=== PATIENT | female | born 1950 | race Two or more races ===

== ENCOUNTER 2021-03-14 20:20 | Inpatient (IN) | payer MEDICARE, OTHER ==
[~2021-03-14] VITALS: Ht 157.5 cm; Wt 80.1 kg
[2021-03-14 21:12] LABS: BASO # 0.2 x10^3/uL (0.0-0.2); BASO % 1 % (0-3); EOS # 0.2 x10^3/uL (0.0-0.7); EOS % 2 % (0-3); HEMATOCRIT 47.1 % (36.0-47.0); HEMOGLOBIN 16.2 g/dL (12.0-15.5); LYMPH # 2.7 x10^3/uL (1.0-4.8); LYMPH % 22 % (24-48); MEAN CORPUSCULAR HEMOGLOBIN 31 pg (25-35); MEAN CORPUSCULAR HGB CONC 34 g/dL (31-37); MEAN CORPUSCULAR VOLUME 89 fL (79-100); MONO % 8 % (0-9); NEUT % 66 % (31-73); PLATELET COUNT 277 x10^3/uL (140-400); RED BLOOD COUNT 5.28 x10^6/uL (3.50-5.40); RED CELL DISTRIBUTION WIDTH 13.1 % (11.5-14.5); WHITE BLOOD COUNT 12.2 x10^3/uL (4.0-11.0)
[2021-03-14] MEDS ORDERED: ASPIRIN 325 MG TABLET PO ONE (21:15)
[2021-03-14] MEDS ORDERED: NITROGLYCERIN SUBLINGUAL 0.4 MG BOTTLE OF 25. SL PRN (21:15)
--- NOTE | 2021-03-14 21:16 | PHYS DOC ---
Past Medical History Past Medical History: Cancer, Other Additional Past Medical Histor: LYMPHOMA, BOWEL OBSTRUCTION Past Surgical History: Appendectomy, Cholecystectomy, Other Additional Past Surgical Histo: HERNIA REPAIR, BOWEL RESECTION Smoking Status: Current Every Day Smoker Alcohol Use: None General Adult EDM: Chief Complaint: CHEST PAIN HPI: HPI: Patient is a 70 year old female who presents with 2000 tonight she began having left-sided chest pressure with sharp shooting pain in her bilateral arms. She took an 81 mg aspirin. She stated she did have some nausea, vomiting and sweating and dizziness. She states the pain will lessen in intensity and then go back to very painful. At this time she rates it at a 2 out of 10. Patient has a history of obstruction, lymphoma, appendectomy, cholecystectomy, bowel resection, smoking. Review of Systems: Review of Systems: Constitutional: Denies fever or chills. [] Eyes: Denies change in visual acuity. [] HENT: Denies nasal congestion or sore throat. [] Respiratory: Denies cough or +shortness of breath. [] Cardiovascular: + chest pain or denies edema. [] GI: Denies abdominal pain, +nausea, denies vomiting, bloody stools or diarrhea. [] : Denies dysuria. [] Musculoskeletal: + Upper back pain or +Bilateral arms joint pain. [] Integument: Denies rash. [] Neurologic: Denies headache, focal weakness or sensory changes. + Intermittent dizziness [] Endocrine: Denies polyuria or polydipsia. [] Lymphatic: Denies swollen glands. [] Psychiatric: Denies depression or anxiety. [] Heart Score: C/O Chest Pain: Yes Risk Factors: Risk Factors: DM, Current or recent (<one month) smoker, HTN, HLP, family history of CAD, obesity. Risk Scores: Score 0 - 3: 2.5% MACE over next 6 weeks - Discharge Home Score 4 - 6: 20.3% MACE over next 6 weeks - Admit for Clinical Observation Score 7 - 10: 72.7% MACE over next 6 weeks - Early Invasive Strategies Current Medications: Current Medications Medications (Trade) Dose Ordered Sig/Omer Start Time Stop Time Status Last Admin Dose Admin Aspirin (Charlene Aspirin) 325 mg 1X ONCE 03/14/21 21:15 03/14/21 21:16 Nitroglycerin (Nitrostat) 0.4 mg PRN Q5MIN PRN 03/14/21 21:15 UNV Allergies: Allergies: Allergies Coded Allergies Type Severity Reaction Last Updated Verified codeine Allergy Intermediate 05/21/20 Yes Physical Exam: PE: Constitutional: Well developed, well nourished, no acute distress, non-toxic appearance. [] HENT: Normocephalic, atraumatic, bilateral external ears normal, oropharynx moist, no oral exudates, nose normal. [] Eyes: PERRLA, EOMI, conjunctiva normal, no discharge. [] Neck: Normal range of motion, no tenderness, supple, no stridor. [] Cardiovascular:Heart rate regular rhythm, no murmur [] Lungs & Thorax: Bilateral upper breath sounds clear and lower diminished to auscultation [] Abdomen: Bowel sounds normal, soft, no tenderness, no masses, no pulsatile masses. [] Skin: Warm, dry, no erythema, no rash. [] Back: No tenderness, no CVA tenderness. [] Extremities: No tenderness, no cyanosis, no clubbing, ROM intact, no edema. [] Neurologic: Alert and oriented X 3, normal motor function, normal sensory function, no focal deficits noted. [] Psychologic: Affect normal, judgement normal, mood normal. [] Current Patient Data: Vital Signs: Vital Signs Date Time Temp Pulse Resp B/P (MAP) Pulse Ox O2 Delivery O2 Flow Rate FiO2 03/14/21 20:50 97.6 78 17 157/79 (105) 100 Room Air 97.6 EKG: EK and read by Dr. Wilcox as a sinus rhythm but no STEMI [address] Wilcox as a sinus rhythm and no STEMI with a PAC. Radiology/Procedures: Radiology/Procedures: [] Impression: [facility] [address] [place], [place] [id number] IMAGING REPORT Signed PATIENT: VANESSA QUINN ACCOUNT: [id number] : 1950 LOCATION: ER AGE: 70 SEX: F EXAM STATUS: REG ER ORD. PHYSICIAN: KWADWO LUCERO APRN REASON: dizzy, htn PROCEDURE: CT HEAD WO CONTRAST EXAMINATION: CT HEAD/BRAIN WO CLINICAL HISTORY: Dizziness, hypertension TECHNIQUE: Serial axial images without IV contrast were obtained from the vertex to the foramen magnum. CT Dose Reduction Employed: One or more of the following individualized dose reduction techniques were utilized for this examination: 1. Automated exposure control 2. Adjustment of the mA and/or kV according to patient size 3. Use of iterative reconstruction technique. COMPARISON: None FINDINGS: Acute Change: No evidence of an acute infarct or other acute parenchymal pro cess. Hemorrhage: No evidence of acute intracranial hemorrhage. Mass Lesion/Mass Effect: No evidence of intracranial mass or extraaxial fluid collection. No significant mass effect. Chronic Change: Asymmetric mild white matter hypoattenuation in the right cerebral hemisphere, nonspecific and may be artifactual, but ischemic infarct is not excluded. Rodríguez-white matter differentiation maintained. Atherosclerotic calcification of the intracranial portion of the bilateral internal carotid arteries. Parenchyma: Mild generalized volume loss. Ventricles: Ventricles within normal limits for age. Paranasal Sinuses and Skull Base: Right frontal osteoma. Visualized skull base and soft tissues unremarkable. IMPRESSION: No definitive evidence of acute intracranial abnormality. Nonspecific asymmetric white matter hypoattenuation in the right cerebral hemisphere, possibly artifactual but an ischemic infarct is not entirely excluded. Correlate clinically and consider MRI for further evaluation as indicated. Electronically signed by: Kai Caldwell DO (03/14/2021 10:50 PM) [facility] DICTATED and SIGNED BY: KAI CALDWELL DO DATE: 03/14/21 [id number] [facility] [address] [place], [place] [id number] IMAGING REPORT Signed PATIENT: VANESSA QUINN CACCOUNT: [id number] : 1950 LOCATION: ER AGE: 70 SEX: F EXAM STATUS: REG ER ORD. PHYSICIAN: KWADWO LUCERO APRN REASON: chest pain, soa PROCEDURE: PORTABLE CHEST 1V EXAMINATION: XR CHEST 1V CLINICAL HISTORY: Chest pain, shortness of breath EXAM DATE/TIME: 03/14/2021 9:13 PM COMPARISON: None FINDINGS: Lines, Tubes, and Devices: None. Cardiomediastinal Silhouette: Normal heart size. Lungs and Pleura: No evidence of focal airspace consolidation or pleural effusion. Pulmonary vasculature unremarkable. Bones and Soft Tissues: Degenerative changes in the thoracic spine. Right axillary surgical clips. IMPRESSION: No evidence of acute cardiopulmonary abnormality. Electronically signed by: Kai Caldwell DO (03/14/2021 10:35 PM) [facility] DICTATED and SIGNED BY: KAI CALDWELL DO DATE: 03/14/21 [id number] 0 [facility] [address] [place] [address] IMAGING REPORT Signed PATIENT: VANESSA QUINN CACCOUNT: [id number] : 1950 LOCATION: ER AGE: 70 SEX: F EXAM STATUS: REG ER ORD. PHYSICIAN: KWADWO LUCERO APRN REASON: PAIN IN MID BACK WITH CHEST PAIN, NSTEMI, OMNI 350 100 ML IV PROCEDURE: CT ANGIOGRAPHY CHEST EXAMINATION: CTA CHEST CLINICAL HISTORY: PAIN IN MID BACK WITH CHEST PAIN, NSTEMI Technique: Spiral CT acquisition of the chest from the thoracic inlet to the upper abdomen following IV contrast with coronal and sagittal reformatted images also provided for review. 3D maximum intensity projection images also performed. CT Dose Reduction Employed: One or more of the following individualized dose reduction techniques were utilized for this examination: 1. Automated exposure control 2. Adjustment of the mA and/or kV according to patient size 3. Use of iterative reconstruction technique. COMPARISON: Chest radiograph same day FINDINGS: Pulmonary Vasculature: No evidence of main, lobar, or segmental pulmonary arterial thrombus. Lung Parenchyma, Pleura, and Airways: No focal consolidation. Minimal subsegmental atelectasis, predominantly in the dependent lungs. No pleural effusion. Central airways patent. Lower Neck, Lymph Nodes, and Mediastinum: Visualized thyroid gland within normal limits. No mediastinal, hilar, or axillary lymphadenopathy. Calcified left hilar lymph nodes, compatible with old granulomatous disease. Heart, Pericardium, and Thoracic Vessels: Cardiac chambers normal in size. No pericardial effusion. Thoracic aorta within normal limits. No coronary artery atherosclerotic calcifications are noted, although the study is not optimized for coronary assessment. Bones and Soft Tissues: Degenerative changes in the thoracic spine. Upper Abdomen: Biliary ductal prominence status post cholecystectomy. IMPRESSION: No evidence of main, lobar, or segmental pulmonary embolism. Electronically signed by: Kai Caldwell DO (03/14/2021 11:46 PM) [facility] DICTATED and SIGNED BY: KAI CALDWELL DO DATE: 03/14/21 [id number] 0 Course & Med Decision Making: Course & Med Decision Making Pertinent Labs and Imaging studies reviewed. (See chart for details) See HPI. Alert and oriented x4. Ambulatory steady gait. Moving all extremities equally with equal strengths. No visual loss. PERRLA. Sensation intact. Neurologically intact. Skin pink warm and dry. No extremity edema. Lungs are clear in upper lobes and diminished in lower lobes. PERRLA. No nystagmus. After 1 nitro her pain went down to a 1 out of 10. I spoke to Dr. Lozoya who states to start the patient on a heparin drip. Her troponin is 380. I did order a CT of her head because she was hypertensive and having dizziness. Also ordered a CT angio of the chest to rule out dissection, due to her having upper back pain that sharp and shooting that also radiates into her chest at times. [] Dragon Disclaimer: Dragon Disclaimer: This electronic medical record was generated, in whole or in part, using a voice recognition dictation system. NIHSS Stroke Scale NIH Stroke Scale: NIH Stroke Scale Response (Comments) Value Level of Consciousness: 0 Alert/Responsive 0 LOC Questions: 0 Answers both correctly 0 LOC Commands: 0 Performs both tasks 0 Best Gaze: 0 Normal 0 Visual: 0 No visual loss 0 Facial Palsy: 0 Normal, symmetrical 0 Motor - Left Arm 0 No drift 0 Motor - Right Arm 0 No drift 0 Motor - Left Leg 0 No drift 0 Motor: Right Leg 0 No drift 0 Limb Ataxia: 0 Absent 0 Sensory: 0 No loss 0 Best Language: 0 Normal 0 Dysathria: 0 Normal 0 Extinction and Inattention: 0 Normal 0 Total 0 Departure Departure Impression: Primary Impression: NSTEMI (non-ST elevated myocardial infarction) Disposition: ADMITTED INPATIENT Admitting Physician: MIS Condition: STABLE Referrals: IVAN BECERRA MD (PCP) Scripts No Active Prescriptions or Reported Meds KWADWO LUCERO APRN Mar 14, 2021 21:16
[2021-03-14 21:19] LABS: CALCIUM 8.8 mg/dL (8.5-10.1); CREATININE 0.6 mg/dL (0.6-1.0); GFR 99.1; POTASSIUM 3.7 mmol/L (3.5-5.1)
[2021-03-14 21:25] LABS: ALBUMIN 3.6 g/dL (3.4-5.0); ALBUMIN/GLOBULIN RATIO 1.2 (1.0-1.7); MAGNESIUM 2.2 mg/dL (1.8-2.4); TOTAL BILIRUBIN 0.3 mg/dL (0.2-1.0); TOTAL PROTEIN 6.5 g/dL (6.4-8.2)
[2021-03-14] MEDS ORDERED: MORPHINE SULFATE 2 MG/ML INJ. IVP PRN (21:45)
[2021-03-14] MEDS ORDERED: HEPARIN 25,000UTS/250ML PREMIX 250 ML IV PRN ×2 (21:45→22:21)
[2021-03-14] MEDS ORDERED: ONDANSETRON PF 4 MG/2 ML VIAL. IVP PRN (21:45)
[2021-03-14] MEDS ORDERED: HEPARIN for IV BOLUS 10,000 UNIT/10 ML VIAL. IV ONE (21:45)
[2021-03-14] MEDS ORDERED: HEPARIN for IV BOLUS 10,000 UNIT/10 ML VIAL. IV PRN (21:45)
[2021-03-14] MEDS ORDERED: IOHEXOL 350 MG/ML 100 ML VIAL. IV ONE (22:00)
[2021-03-14] MEDS ORDERED: CONTRAST GIVEN. MC PRN (22:00)
[2021-03-14 22:32] LABS: BILIRUBIN,URINE NEGATIVE (NEG); CLARITY,URINE CLEAR; COLOR,URINE YELLOW; NITRITE,URINE NEGATIVE (NEG); PROTEIN,URINE NEGATIVE (NEG-TRACE); UROBILINOGEN,URINE 0.2 mg/dL (0.2 mg/dL)
[2021-03-14 22:38] LABS: BACTERIA,URINE 0 /HPF (0-FEW); BARBITURATES NEG (NEG); BENZODIAZEPINES NEG (NEG); CANNABINOIDS NEG (NEG); COCAINE NEG (NEG); METHADONE NEG (NEG); OPIATES NEG (NEG); PHENCYCLIDINE NEG (NEG); RBC,URINE 0 /HPF (0-2); WBC,URINE 0 /HPF (0-4)
--- NOTE | 2021-03-14 22:38 | RAD ---
EXAMINATION: XR CHEST 1V CLINICAL HISTORY: Chest pain, shortness of breath EXAM DATE/TIME: 03/14/2021 9:13 PM COMPARISON: None FINDINGS: Lines, Tubes, and Devices: None. Cardiomediastinal Silhouette: Normal heart size. Lungs and Pleura: No evidence of focal airspace consolidation or pleural effusion. Pulmonary vasculat ure unremarkable. Bones and Soft Tissues: Degenerative changes in the thoracic spine. Right axillary surgical clips. IMPRESSION: No evidence of acute cardiopulmonary abnormality. Electronically signed by: Kai Haro DO (03/14/2021 10:35 PM) [facility]
[2021-03-14 22:40] LABS: AMPHETAMINE/METHAMPHETAMINE NEG (NEG)
--- NOTE | 2021-03-14 22:53 | RAD ---
EXAMINATION: CT HEAD/BRAIN WO CLINICAL HISTORY: Dizziness, hypertension TECHNIQUE: Serial axial images without IV contrast were obtained from the vertex to the foramen magnu m. CT Dose Reduction Employed: One or more of the following individualized dose reduction techniques jurgen e utilized for this examination: 1. Automated exposure control 2. Adjustment of the mA and/or kV ac cording to patient size 3. Use of iterative reconstruction technique. COMPARISON: None FINDINGS: Acute Change: No evidence of an acute infarct or other acute parenchymal process. Hemorrhage: No evidence of acute intracranial hemorrhage. Mass Lesion/Mass Effect: No evidence of intracranial mass or extraaxial fluid collection. No signific ant mass effect. Chronic Change: Asymmetric mild white matter hypoattenuation in the right cerebral hemisphere, nonspe cific and may be artifactual, but ischemic infarct is not excluded. Rodríguez-white matter differentiation maintained. Atherosclerotic calcification of the intracranial portion of the bilateral internal lopez tid arteries. Parenchyma: Mild generalized volume loss. Ventricles: Ventricles within normal limits for age. Paranasal Sinuses and Skull Base: Right frontal osteoma. Visualized skull base and soft tissues unrem arkable. IMPRESSION: No definitive evidence of acute intracranial abnormality. Nonspecific asymmetric white matter hypoattenuation in the right cerebral hemisphere, possibly artifa ctual but an ischemic infarct is not entirely excluded. Correlate clinically and consider MRI for fur ther evaluation as indicated. Electronically signed by: Kai Haro DO (03/14/2021 10:50 PM) [facility]
[2021-03-14] MEDS ORDERED: IV NORMAL SALINE 1000ML BAG 1,000 ML IV ONE (23:45)
--- NOTE | 2021-03-14 23:49 | RAD ---
EXAMINATION: CTA CHEST CLINICAL HISTORY: PAIN IN MID BACK WITH CHEST PAIN, NSTEMI Technique: Spiral CT acquisition of the chest from the thoracic inlet to the upper abdomen following IV contrast with coronal and sagittal reformatted images also provided for review. 3D maximum intensi ty projection images also performed. CT Dose Reduction Employed: One or more of the following individualized dose reduction techniques wer e utilized for this examination: 1. Automated exposure control 2. Adjustment of the mA and/or kV ac cording to patient size 3. Use of iterative reconstruction technique. COMPARISON: Chest radiograph same day FINDINGS: Pulmonary Vasculature: No evidence of main, lobar, or segmental pulmonary arterial thrombus. Lung Parenchyma, Pleura, and Airways: No focal consolidation. Minimal subsegmental atelectasis, predo minantly in the dependent lungs. No pleural effusion. Central airways patent. Lower Neck, Lymph Nodes, and Mediastinum: Visualized thyroid gland within normal limits. No mediastin al, hilar, or axillary lymphadenopathy. Calcified left hilar lymph nodes, compatible with old granulo matous disease. Heart, Pericardium, and Thoracic Vessels: Cardiac chambers normal in size. No pericardial effusion. T horacic aorta within normal limits. No coronary artery atherosclerotic calcifications are noted, alth ough the study is not optimized for coronary assessment. Bones and Soft Tissues: Degenerative changes in the thoracic spine. Upper Abdomen: Biliary ductal prominence status post cholecystectomy. IMPRESSION: No evidence of main, lobar, or segmental pulmonary embolism. Electronically signed by: Kai Haro DO (03/14/2021 11:46 PM) [facility]
[2021-03-15] VITALS (25 sets, daily range): BP systolic 99–188; BP diastolic 63–110
--- NOTE | 2021-03-15 04:00 | EKG ---
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
--- NOTE | 2021-03-15 04:05 | EKG ---
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
[2021-03-15 04:40] LABS: HEMATOCRIT 45.2 % (36.0-47.0); HEMOGLOBIN 15.2 g/dL (12.0-15.5); RED CELL DISTRIBUTION WIDTH 13.4 % (11.5-14.5)
--- NOTE | 2021-03-15 08:08 | PDOC1 ---
History and Physical Date of Admission Date of Admission DATE: 03/15/21 TIME: 07:55 Identification/Chief Complaint Chief Complaint Chest pain Source Source: Patient History of Present Illness History of Present Illness Ms Leahy is a 70 yo F with PMH lymphoma, smoker who comes to ED 03/14/2021 with sudden onset left-sided chest pressure radiating down into bilateral arms and 8 PM. She took an aspirin at home 81 mg which helped somewhat. Pain was initially 8 out of 10 after aspirin and time pain 2 out of 10. She had associated nausea vomiting diaphoresis and dizziness. No numbness tingling confusion. No diarrhea or constipation. She is fully vaccinated against COVID-19 and actually received her third series Pfizer booster on 03/12/2021 WBC 12.2, Hb 16.2, platelets 277, NA 139, K3.7, BUN 10, CR 0.6, glucose 108, calcium 8.8, mag 2.2, bilirubin 0.3, AST 15, ALT 21, alkaline phosphatase 121, albumin 3.6, NT proBNP 158, high-sensitivity troponin 380 and the 2nd was 4081, then 5165 Urine drug screen negative urinalysis bland, COVID-19 rapid negative Chest radiograph with no acute abnormality CT head with no acute intracranial abnormality EKG #1 rate 75 bpm rhythm appears with multiple PACs versus a flutter though there are conjoint P waves T complexes as well. EKG #2 appears sinus rhythm rate of 67 bpm with leftward axis T WI in precordial leads V2 through V6 aVL and lead I. Admitted to ICU on heparin GTT. Past Medical History Cardiovascular: HTN Heme/Onc: Cancer Past Surgical History Past Surgical History: Appendectomy, Cholecystectomy, Colon Resection Family History Family History: Coronary Artery Disease, Diabetes, Heart Disease, High Cholestrol, Stroke (Brother) Social History Smoke: 1 pack per day ALCOHOL: rare Drugs: None Current Medications Current Medications Current Medications Aspirin (Charlene Aspirin) 325 mg 1X ONCE PO Last administered on 03/14/21at 21:24; Start 03/14/21 at 21:15; Stop 03/14/21 at 21:16; Status DC Nitroglycerin (Nitrostat) 0.4 mg PRN Q5MIN PRN SL CHEST PAIN Last administered on 03/14/21at 21:25; Start 03/14/21 at 21:15 Heparin Sodium (Porcine) (Heparin Sodium) 4,000 unit 1X ONCE IV Last administered on 03/14/21at 22:15; Start 03/14/21 at 21:45; Stop 03/14/21 at 21:47; Status DC Heparin Sodium/ Dextrose 250 ml @ 9.6 mls/hr CONT PRN IV PER PROTOCOL; Start 03/14/21 at 21:45; Stop 03/14/21 at 22:21; Status DC Heparin Sodium (Porcine) (Heparin Sodium) 2,000 unit PRN Q6HRS PRN IV FOR UFH LEVEL LESS THAN 0.2; Start 03/14/21 at 21:45 Ondansetron HCl (Zofran) 4 mg PRN Q8HRS PRN IVP NAUSEA/VOMITING; Start 03/14/21 at 21:45; Stop 03/15/21 at 21:44 Morphine Sulfate (Morphine Sulfate) 2 mg PRN Q2HR PRN IVP PAIN; Start 03/14/21 at 21:45; Stop 03/15/21 at 21:44 Iohexol (Omnipaque 350 Mg/ml) 100 ml 1X ONCE IV Last administered on 03/14/21at 22:22; Start 03/14/21 at 22:00; Stop 03/14/21 at 22:01; Status DC Info (CONTRAST GIVEN -- Rx MONITORING) 1 each PRN DAILY PRN MC SEE COMMENTS; Start 03/14/21 at 22:00; Stop 03/16/21 at 21:59 Heparin Sodium/ Dextrose 250 ml @ 10.512 mls/ hr CONT PRN IV PER PROTOCOL Last administered on 03/14/21at 22:27; Start 03/14/21 at 22:21 Sodium Chloride 1,000 ml @ 1,000 mls/hr 1X ONCE IV Last administered on 03/15/21at 00:21; Start 03/14/21 at 23:45; Stop 03/15/21 at 00:44; Status DC Active Scripts Active No Active Prescriptions or Reported Medications Allergies Allergies: Coded Allergies: codeine (Verified Allergy, Intermediate, 05/21/20) MORPHINE OK latex (Verified Allergy, Intermediate, 03/14/21) ROS General: YES: Fatigue, Malaise; No: Chills, Night Sweats, Appetite, Other PSYCHOLOGICAL ROS: No: Anxiety, Behavioral Disorder, Concentration difficultie, Decreased libido, Depression, Disorientation, Hallucinations, Hostility, Irritablity, Memory difficulties, Mood Swings, Obsessive thoughts, Physical abuse, Sexual abuse, Sleep disturbances, Suicidal ideation, Other Eyes: No Blurry vision, No Decreased vision, No Double vision, No Dry eyes, No Excessive tearing, No Eye Pain, No Itchy Eyes, No Loss of vision, No Photophobia, No Scotomata, No Uses contacts, No Uses glasses, No Other HEENT: No: Heacaches, Visual Changes, Hearing change, Nasal congestion, Nasal discharge, Oral lesions, Sinus pain, Sore Throat, Epistaxis, Sneezing, Snoring, Tinnitus, Vertigo, Vocal changes, Other ALLERGY AND IMMUNOLOGY: No: Hives, Insect Bite Sensitivity, Itchy/Watery Eyes, Nasal Congestion, Post Nasal Drip, Seasonal Allergies, Other Hematological and Lymphatic: No: Bleeding Problems, Blood Clots, Blood Transfusions, Brusing, Night Sweats, Pallor, Swollen Lymph Nodes, Other ENDOCRINE: No: Breast Changes, Galactorrhea, Hair Pattern Changes, Hot Flashes, Malaise/lethargy, Mood Swings, Palpitations, Polydipsia/polyuria, Skin Changes, Temperature Intolerance, Unexpected Weight Changes, Other Breast: No New/Changing Breast Lumps, No Nipple changes, No Nipple discharge, No Other Respiratory: No: Cough, Hemoptysis, Orthopnea, Pleuritic Pain, Shortness of breath, SOB with excertion, Sputum Changes, Stridor, Tachypnea, Wheezing, Other Cardiovascular: yes Chest Pain; No Palpitations, No Orthopnea, No Paroxysmal Noc. Dyspnea, No Edema, No Lt Headedness, No Other Gastrointestinal: No Nausea, No Vomiting, No Abdominal Pain, No Diarrhea, No Constipation, No Melena, No Hematochezia, No Other Genitourinary: No Dysuria, No Frequency, No Incontinence, No Hematuria, No Retention, No Discharge, No Urgency, No Pain, No Flank Pain, No Other, No , No , No , No , No , No , No Musculoskeletal: No Gait Disturbance, No Joint Pain, No Joint Stiffness, No Joint Swelling, No Muscle Pain, No Muscular Weakness, No Pain In:, No Swelling In:, No Other Neurological: No Behavorial Changes, No Bowel/Bladder ControlChng, No Confusion, No Dizziness, No Gait Disturbance, No Headaches, No Impaired Coord/balance, No Memory Loss, No Numbness/Tingling, No Seizures, No Speech Problems, No Tremors, No Visual Changes, No Weakness, No Other Skin: No Dry Skin, No Eczema, No Hair Changes, No Lumps, No Mole Changes, No Mottling, No Nail Changes, No Pruritus, No Rash, No Skin Lesion Changes, No Other, No Acne Physical Exam General: Alert, Oriented X3, Cooperative, moderate distress HEENT: Atraumatic, PERRLA, EOMI, Mucous membr. moist/pink Lungs: Clear to auscultation, Normal air movement Heart: S1S2, RRR, no thrills, no rubs, no gallops, no murmurs Abdomen: Normal bowel sounds, Soft, No tenderness, No hepatosplenomegaly, No masses Rectal Exam: not examined Extremities: No clubbing, No cyanosis, No edema, Normal pulses, No tenderness/swelling Skin: No rashes, No breakdown, No significant lesion Neuro: Normal gait, Normal speech, Strength at 5/5 X4 ext, Normal tone, Sensati on intact, Cranial nerves 3-12 NL, Reflexes 2+ Psych/Mental Status: Mental status NL, Mood NL Vitals Vitals Vital Signs Date Time Temp Pulse Resp B/P (MAP) Pulse Ox O2 Delivery O2 Flow Rate FiO2 03/15/21 04:00 Room Air 03/15/21 01:43 66 20 164/68 (100) 98 03/14/21 20:50 97.6 97.6 Labs Labs Laboratory Tests Test 03/14/21 21:00 03/14/21 21:26 03/14/21 21:27 03/14/21 22:22 White Blood Count 12.2 x10^3/uL (4.0-11.0) Red Blood Count 5.28 x10^6/uL (3.50-5.40) Hemoglobin 16.2 g/dL (12.0-15.5) Hematocrit 47.1 % (36.0-47.0) Mean Corpuscular Volume 89 fL (79-100) Mean Corpuscular Hemoglobin 31 pg (25-35) Mean Corpuscular Hemoglobin Concent 34 g/dL (31-37) Red Cell Distribution Width 13.1 % (11.5-14.5) Platelet Count 277 x10^3/uL (140-400) Neutrophils (%) (Auto) 66 % (31-73) Lymphocytes (%) (Auto) 22 % (24-48) Monocytes (%) (Auto) 8 % (0-9) Eosinophils (%) (Auto) 2 % (0-3) Basophils (%) (Auto) 1 % (0-3) Neutrophils # (Auto) 8.0 x10^3/uL (1.8-7.7) Lymphocytes # (Auto) 2.7 x10^3/uL (1.0-4.8) Monocytes # (Auto) 1.0 x10^3/uL (0.0-1.1) Eosinophils # (Auto) 0.2 x10^3/uL (0.0-0.7) Basophils # (Auto) 0.2 x10^3/uL (0.0-0.2) Sodium Level 139 mmol/L (136-145) Potassium Level 3.7 mmol/L (3.5-5.1) Chloride Level 102 mmol/L (98-107) Carbon Dioxide Level 26 mmol/L (21-32) Anion Gap 11 (6-14) Blood Urea Nitrogen 10 mg/dL (7-20) Creatinine 0.6 mg/dL (0.6-1.0) Estimated GFR (Cockcroft-Gault) 99.1 BUN/Creatinine Ratio 17 (6-20) Glucose Level 108 mg/dL (70-99) Calcium Level 8.8 mg/dL (8.5-10.1) Magnesium Level 2.2 mg/dL (1.8-2.4) Total Bilirubin 0.3 mg/dL (0.2-1.0) Aspartate Amino Transf (AST/SGOT) 13 U/L (15-37) Alanine Aminotransferase (ALT/SGPT) 21 U/L (14-59) Alkaline Phosphatase 121 U/L (46-116) Troponin I High Sensitivity 380 ng/L (4-50) TX-Wkt-Y-Type Natriuretic Peptide 158 pg/mL (0-124) Total Protein 6.5 g/dL (6.4-8.2) Albumin 3.6 g/dL (3.4-5.0) Albumin/Globulin Ratio 1.2 (1.0-1.7) SARS-CoV-2 Antigen (Rapid) Negative (NEGATIVE) Activated Partial Thromboplast Time 26 SEC (24-38) D-Dimer (Christy) < 0.27 ug/mlFEU Urine Collection Type Unknown Urine Color Yellow Urine Clarity Clear Urine pH 6.0 (<5.0-8.0) Urine Specific [place] 1.020 (1.000-1.030) Urine Protein Negative mg/dL (NEG-TRACE) Urine Glucose (UA) Negative mg/dL (NEG) Urine Ketones (Stick) Negative mg/dL (NEG) Urine Blood Negative (NEG) Urine Nitrite Negative (NEG) Urine Bilirubin Negative (NEG) Urine Urobilinogen Dipstick 0.2 mg/dL (0.2 mg/dL) Urine Leukocyte Esterase Negative (NEG) Urine RBC 0 /HPF (0-2) Urine WBC 0 /HPF (0-4) Urine Squamous Epithelial Cells Few /LPF Urine Bacteria 0 /HPF (0-FEW) Urine Mucus Slight /LPF Urine Opiates Screen Neg (NEG) Urine Methadone Screen Neg (NEG) Urine Barbiturates Neg (NEG) Urine Phencyclidine Screen Neg (NEG) Urine Amphetamine/Methamphetamine Neg (NEG) Urine Benzodiazepines Screen Neg (NEG) Urine Cocaine Screen Neg (NEG) Urine Cannabinoids Screen Neg (NEG) Urine Ethyl Alcohol Neg (NEG) Test 03/15/21 00:20 03/15/21 04:00 Troponin I High Sensitivity 4081 ng/L (4-50) 5165 ng/L (4-50) White Blood Count 10.0 x10^3/uL (4.0-11.0) Red Blood Count 5.00 x10^6/uL (3.50-5.40) Hemoglobin 15.2 g/dL (12.0-15.5) Hematocrit 45.2 % (36.0-47.0) Mean Corpuscular Volume 90 fL (79-100) Mean Corpuscular Hemoglobin 30 pg (25-35) Mean Corpuscular Hemoglobin Concent 34 g/dL (31-37) Red Cell Distribution Width 13.4 % (11.5-14.5) Platelet Count 257 x10^3/uL (140-400) Heparin Anti-Xa Act, Unfractionated 0.40 IU/mL (0.30-0.70) Laboratory Tests Test 03/14/21 21:00 03/14/21 21:26 03/14/21 21:27 03/14/21 22:22 White Blood Count 12.2 x10^3/uL (4.0-11.0) Red Blood Count 5.28 x10^6/uL (3.50-5.40) Hemoglobin 16.2 g/dL (12.0-15.5) Hematocrit 47.1 % (36.0-47.0) Mean Corpuscular Volume 89 fL (79-100) Mean Corpuscular Hemoglobin 31 pg (25-35) Mean Corpuscular Hemoglobin Concent 34 g/dL (31-37) Red Cell Distribution Width 13.1 % (11.5-14.5) Platelet Count 277 x10^3/uL (140-400) Neutrophils (%) (Auto) 66 % (31-73) Lymphocytes (%) (Auto) 22 % (24-48) Monocytes (%) (Auto) 8 % (0-9) Eosinophils (%) (Auto) 2 % (0-3) Basophils (%) (Auto) 1 % (0-3) Neutrophils # (Auto) 8.0 x10^3/uL (1.8-7.7) Lymphocytes # (Auto) 2.7 x10^3/uL (1.0-4.8) Monocytes # (Auto) 1.0 x10^3/uL (0.0-1.1) Eosinophils # (Auto) 0.2 x10^3/uL (0.0-0.7) Basophils # (Auto) 0.2 x10^3/uL (0.0-0.2) Sodium Level 139 mmol/L (136-145) Potassium Level 3.7 mmol/L (3.5-5.1) Chloride Level 102 mmol/L (98-107) Carbon Dioxide Level 26 mmol/L (21-32) Anion Gap 11 (6-14) Blood Urea Nitrogen 10 mg/dL (7-20) Creatinine 0.6 mg/dL (0.6-1.0) Estimated GFR (Cockcroft-Gault) 99.1 BUN/Creatinine Ratio 17 (6-20) Glucose Level 108 mg/dL (70-99) Calcium Level 8.8 mg/dL (8.5-10.1) Magnesium Level 2.2 mg/dL (1.8-2.4) Total Bilirubin 0.3 mg/dL (0.2-1.0) Aspartate Amino Transf (AST/SGOT) 13 U/L (15-37) Alanine Aminotransferase (ALT/SGPT) 21 U/L (14-59) Alkaline Phosphatase 121 U/L (46-116) Troponin I High Sensitivity 380 ng/L (4-50) TR-Gke-A-Type Natriuretic Peptide 158 pg/mL (0-124) Total Protein 6.5 g/dL (6.4-8.2) Albumin 3.6 g/dL (3.4-5.0) Albumin/Globulin Ratio 1.2 (1.0-1.7) SARS-CoV-2 Antigen (Rapid) Negative (NEGATIVE) Activated Partial Thromboplast Time 26 SEC (24-38) D-Dimer (Christy) < 0.27 ug/mlFEU Urine Collection Type Unknown Urine Color Yellow Urine Clarity Clear Urine pH 6.0 (<5.0-8.0) Urine Specific [place] 1.020 (1.000-1.030) Urine Protein Negative mg/dL (NEG-TRACE) Urine Glucose (UA) Negative mg/dL (NEG) Urine Ketones (Stick) Negative mg/dL (NEG) Urine Blood Negative (NEG) Urine Nitrite Negative (NEG) Urine Bilirubin Negative (NEG) Urine Urobilinogen Dipstick 0.2 mg/dL (0.2 mg/dL) Urine Leukocyte Esterase Negative (NEG) Urine RBC 0 /HPF (0-2) Urine WBC 0 /HPF (0-4) Urine Squamous Epithelial Cells Few /LPF Urine Bacteria 0 /HPF (0-FEW) Urine Mucus Slight /LPF Urine Opiates Screen Neg (NEG) Urine Methadone Screen Neg (NEG) Urine Barbiturates Neg (NEG) Urine Phencyclidine Screen Neg (NEG) Urine Amphetamine/Methamphetamine Neg (NEG) Urine Benzodiazepines Screen Neg (NEG) Urine Cocaine Screen Neg (NEG) Urine Cannabinoids Screen Neg (NEG) Urine Ethyl Alcohol Neg (NEG) Test 03/15/21 00:20 03/15/21 04:00 Troponin I High Sensitivity 4081 ng/L (4-50) 5165 ng/L (4-50) White Blood Count 10.0 x10^3/uL (4.0-11.0) Red Blood Count 5.00 x10^6/uL (3.50-5.40) Hemoglobin 15.2 g/dL (12.0-15.5) Hematocrit 45.2 % (36.0-47.0) Mean Corpuscular Volume 90 fL (79-100) Mean Corpuscular Hemoglobin 30 pg (25-35) Mean Corpuscular Hemoglobin Concent 34 g/dL (31-37) Red Cell Distribution Width 13.4 % (11.5-14.5) Platelet Count 257 x10^3/uL (140-400) Heparin Anti-Xa Act, Unfractionated 0.40 IU/mL (0.30-0.70) Images Images Chest radiograph: Lines, Tubes, and Devices: None. Cardiomediastinal Silhouette: Normal heart size. Lungs and Pleura: No evidence of focal airspace consolidation or pleural effusion. Pulmonary vasculature unremarkable. Bones and Soft Tissues: Degenerative changes in the thoracic spine. Right axillary surgical clips. IMPRESSION: No evidence of acute cardiopulmonary abnormality. CTPA: Pulmonary Vasculature: No evidence of main, lobar, or segmental pulmonary arterial thrombus. Lung Parenchyma, Pleura, and Airways: No focal consolidation. Minimal subsegmental atelectasis, predominantly in the dependent lungs. No pleural effusion. Central airways patent. Lower Neck, Lymph Nodes, and Mediastinum: Visualized thyroid gland within normal limits. No mediastinal, hilar, or axillary lymphadenopathy. Calcified left hilar lymph nodes, compatible with old granulomatous disease. Heart, Pericardium, and Thoracic Vessels: Cardiac chambers normal in size. No pericardial effusion. Thoracic aorta within normal limits. No coronary artery atherosclerotic calcifications are noted, although the study is not optimized for coronary assessment. Bones and Soft Tissues: Degenerative changes in the thoracic spine. Upper Abdomen: Biliary ductal prominence status post cholecystectomy. IMPRESSION: No evidence of main, lobar, or segmental pulmonary embolism. CT head: Acute Change: No evidence of an acute infarct or other acute parenchymal process. Hemorrhage: No evidence of acute intracranial hemorrhage. Mass Lesion/Mass Effect: No evidence of intracranial mass or extraaxial fluid collection. No significant mass effect. Chronic Change: Asymmetric mild white matter hypoattenuation in the right cerebral hemisphere, nonspecific and may be artifactual, but ischemic infarct is not excluded. Rodríguez-white matter differentiation maintained. Atherosclerotic calcification of the intracranial portion of the bilateral internal carotid arteries. Parenchyma: Mild generalized volume loss. Ventricles: Ventricles within normal limits for age. Paranasal Sinuses and Skull Base: Right frontal osteoma. Visualized skull base and soft tissues unremarkable. IMPRESSION: No definitive evidence of acute intracranial abnormality. Nonspecific asymmetric white matter hypoattenuation in the right cerebral hemisphere, possibly artifactual but an ischemic infarct is not entirely ex cluded. Correlate clinically and consider MRI for further evaluation as indicated. VTE Prophylaxis Ordered VTE Prophylaxis Devices: No VTE Pharmacological Prophylaxi: Yes Assessment/Plan Assessment/Plan A/P: Chest pain - concerning for cardiac etiology. With elevated troponin EKG changes concern for pericarditis myocarditis or coronary artery disease as etiology. Cardiology consulted. On heparin gtt. ASA and NTG given. NSTEMI - on heparin GTT. ASA, NTG. Cardiology consulted to consider angiography Elevated blood pressure without diagnosis of HTN -never been on meds Lymphoma -note she is had 2 lymph node resections and had a bowel obstruction with bowel resection is under 6 months of treatment has been told she is in remission. Smoker - counseled on cessation FEN - NPO PPX - heparin gtt FULL CODE Dispo - inpatient CC time 43 minutes Justifications for Admission Other Justification PAVITHRA MCLAUGHLIN MD Mar 15, 2021 08:08
[2021-03-15] MEDS ORDERED: ENALAPRILAT 1.25 MG/ML VIAL. IVP PRN (09:15)
[2021-03-15] MEDS ORDERED: IODIXANOL 320 MG/ML 100 ML VIAL. ONE (10:16)
[2021-03-15] MEDS ORDERED: LIDOCAINE 1% PF 2 ML VIAL. ONE (10:16)
[2021-03-15] MEDS ORDERED: fentaNYL PF VIAL 100 MCG/2 ML VIAL ONE (10:25)
[2021-03-15] MEDS ORDERED: HEPARIN for IV BOLUS 10,000 UNIT/10 ML VIAL. ONE (10:25)
[2021-03-15] MEDS ORDERED: VERAPAMIL 5 MG/2 ML VIAL. ONE (10:25)
[2021-03-15] MEDS ORDERED: MIDAZOLAM HCL/PF 2 MG/2 ML VIAL. ONE ×2 (10:25→11:00)
[2021-03-15] MEDS ORDERED: NITROGLYCERIN 200 MCG/2 ML SYRINGE FOR CATH/VASC LAB. ONE (10:25)
--- NOTE | 2021-03-15 10:48 | PDOC2 ---
CONSULT Date of Consult Date of Consult DATE: 03/15/21 TIME: 10:47 Reason for Consult Reason for Consult: Chest pain and elevated troponin level Referring Physician Referring Physician: Dr. Luo Identification/Chief Complaint Chief Complaint Chest pain Source Source: Chart review, Patient History of Present Illness Reason for Visit: 70-year-old female without any previous cardiac history presented with retrosternal chest pain that she described as pressure-like sensation radiating to both arms, 8/10 severity that started yesterday evening around 8 PM. She had mild associated nausea and diaphoresis but denied any shortness of breath, palpitations or syncope. Her troponin level was elevated prompting cardiology consultation. Upon my examination, patient was chest pain-free. Past Medical History Cardiovascular: HTN Heme/Onc: Cancer Past Surgical History Past Surgical History: Appendectomy, Cholecystectomy, Colon Resection Family History Family History: Coronary Artery Disease, Diabetes, Heart Disease, High Cholestrol, Stroke (Brother) Social History 1 pack per day ALCOHOL: rare Drugs: None Current Medications Current Medications Current Medications Aspirin (Charlene Aspirin) 325 mg 1X ONCE PO Last administered on 03/14/21at 21:24; Start 03/14/21 at 21:15; Stop 03/14/21 at 21:16; Status DC Nitroglycerin (Nitrostat) 0.4 mg PRN Q5MIN PRN SL CHEST PAIN Last administered on 03/14/21at 21:25; Start 03/14/21 at 21:15 Heparin Sodium (Porcine) (Heparin Sodium) 4,000 unit 1X ONCE IV Last administered on 03/14/21at 22:15; Start 03/14/21 at 21:45; Stop 03/14/21 at 2 1:47; Status DC Heparin Sodium/ Dextrose 250 ml @ 9.6 mls/hr CONT PRN IV PER PROTOCOL; Start 03/14/21 at 21:45; Stop 03/14/21 at 22:21; Status DC Heparin Sodium (Porcine) (Heparin Sodium) 2,000 unit PRN Q6HRS PRN IV FOR UFH LEVEL LESS THAN 0.2; Start 03/14/21 at 21:45 Ondansetron HCl (Zofran) 4 mg PRN Q8HRS PRN IVP NAUSEA/VOMITING; Start 03/14/21 at 21:45; Stop 03/15/21 at 21:44 Morphine Sulfate (Morphine Sulfate) 2 mg PRN Q2HR PRN IVP PAIN; Start 03/14/21 at 21:45; Stop 03/15/21 at 21:44 Iohexol (Omnipaque 350 Mg/ml) 100 ml 1X ONCE IV Last administered on 03/14/21at 22:22; Start 03/14/21 at 22:00; Stop 03/14/21 at 22:01; Status DC Info (CONTRAST GIVEN -- Rx MONITORING) 1 each PRN DAILY PRN MC SEE COMMENTS; Start 03/14/21 at 22:00; Stop 03/16/21 at 21:59 Heparin Sodium/ Dextrose 250 ml @ 10.512 mls/ hr CONT PRN IV PER PROTOCOL Last administered on 03/14/21at 22:27; Start 03/14/21 at 22:21 Sodium Chloride 1,000 ml @ 1,000 mls/hr 1X ONCE IV Last administered on 03/15/21at 00:21; Start 03/14/21 at 23:45; Stop 03/15/21 at 00:44; Status DC Enalaprilat (Vasotec Inj) 1.25 mg PRN Q6HRS PRN IVP HYPERTENSION; Start 03/15/21 at 09:15 Iodixanol (Visipaque 320) 100 ml STK-MED ONCE .ROUTE ; Start 03/15/21 at 10:16; Stop 03/15/21 at 10:16; Status DC Lidocaine HCl (Xylocaine-Mpf 1% 2ml Vial) 2 ml STK-MED ONCE .ROUTE ; Start 03/15/21 at 10:16; Stop 03/15/21 at 10:16; Status DC Heparin Sodium/ Sodium Chloride 500 ml @ As Directed STK-MED ONCE .ROUTE ; Start 03/15/21 at 10:16; Stop 03/15/21 at 10:16; Status DC Fentanyl Citrate (Fentanyl 2ml Vial) 100 mcg STK-MED ONCE .ROUTE ; Start 03/15/21 at 10:25; Stop 03/15/21 at 10:25; Status DC Midazolam HCl (Versed) 2 mg STK-MED ONCE .ROUTE ; Start 03/15/21 at 10:25; Stop 03/15/21 at 10:25; Status DC Heparin Sodium (Porcine) (Heparin Sodium) 10,000 unit STK-MED ONCE .ROUTE ; Start 03/15/21 at 10:25; Stop 03/15/21 at 10:25; Status DC Verapamil HCl (Verapamil) 5 mg STK-MED ONCE .ROUTE ; Start 03/15/21 at 10:25; Stop 03/15/21 at 10:25; Status DC Nitroglycerin (Nitroglycerin) 200 mcg STK-MED ONCE .ROUTE ; Start 03/15/21 at 10:25; Stop 03/15/21 at 10:25; Status DC Active Scripts Active No Active Prescriptions or Reported Medications Allergies Allergies: Coded Allergies: codeine (Verified Allergy, Intermediate, 05/21/20) MORPHINE OK latex (Verified Allergy, Intermediate, 03/14/21) ROS PSYCHOLOGICAL ROS: No: Hallucinations HEENT: No: Epistaxis ENDOCRINE: No: Palpitations Respiratory: No: Shortness of breath Cardiovascular: yes Chest Pain Gastrointestinal: Yes Nausea Genitourinary: No Hematuria Neurological: No Seizures Skin: No Rash Physical Exam General: Alert, Oriented X3 HEENT: Atraumatic Lungs: Clear to auscultation Heart: Regular rate Abdomen: Soft Extremities: No edema Neuro: Normal speech Psych/Mental Status: Mood NL Vitals VITALS Vital Signs Date Time Temp Pulse Resp B/P (MAP) Pulse Ox O2 Delivery O2 Flow Rate FiO2 03/15/21 06:00 70 17 136/63 (87) 97 Room Air 03/15/21 04:00 97.8 97.8 Labs Labs Laboratory Tests Test 03/14/21 21:00 03/14/21 21:26 03/14/21 21:27 03/14/21 22:22 White Blood Count 12.2 x10^3/uL (4.0-11.0) Red Blood Count 5.28 x10^6/uL (3.50-5.40) Hemoglobin 16.2 g/dL (12.0-15.5) Hematocrit 47.1 % (36.0-47.0) Mean Corpuscular Volume 89 fL (79-100) Mean Corpuscular Hemoglobin 31 pg (25-35) Mean Corpuscular Hemoglobin Concent 34 g/dL (31-37) Red Cell Distribution Width 13.1 % (11.5-14.5) Platelet Count 277 x10^3/uL (140-400) Neutrophils (%) (Auto) 66 % (31-73) Lymphocytes (%) (Auto) 22 % (24-48) Monocytes (%) (Auto) 8 % (0-9) Eosinophils (%) (Auto) 2 % (0-3) Basophils (%) (Auto) 1 % (0-3) Neutrophils # (Auto) 8.0 x10^3/uL (1.8-7.7) Lymphocytes # (Auto) 2.7 x10^3/uL (1.0-4.8) Monocytes # (Auto) 1.0 x10^3/uL (0.0-1.1) Eosinophils # (Auto) 0.2 x10^3/uL (0.0-0.7) Basophils # (Auto) 0.2 x10^3/uL (0.0-0.2) Sodium Level 139 mmol/L (136-145) Potassium Level 3.7 mmol/L (3.5-5.1) Chloride Level 102 mmol/L (98-107) Carbon Dioxide Level 26 mmol/L (21-32) Anion Gap 11 (6-14) Blood Urea Nitrogen 10 mg/dL (7-20) Creatinine 0.6 mg/dL (0.6-1.0) Estimated GFR (Cockcroft-Gault) 99.1 BUN/Creatinine Ratio 17 (6-20) Glucose Level 108 mg/dL (70-99) Calcium Level 8.8 mg/dL (8.5-10.1) Magnesium Level 2.2 mg/dL (1.8-2.4) Total Bilirubin 0.3 mg/dL (0.2-1.0) Aspartate Amino Transf (AST/SGOT) 13 U/L (15-37) Alanine Aminotransferase (ALT/SGPT) 21 U/L (14-59) Alkaline Phosphatase 121 U/L (46-116) Troponin I High Sensitivity 380 ng/L (4-50) FH-Cvu-E-Type Natriuretic Peptide 158 pg/mL (0-124) Total Protein 6.5 g/dL (6.4-8.2) Albumin 3.6 g/dL (3.4-5.0) Albumin/Globulin Ratio 1.2 (1.0-1.7) SARS-CoV-2 Antigen (Rapid) Negative (NEGATIVE) Activated Partial Thromboplast Time 26 SEC (24-38) D-Dimer (Christy) < 0.27 ug/mlFEU Urine Collection Type Unknown Urine Color Yellow Urine Clarity Clear Urine pH 6.0 (<5.0-8.0) Urine Specific Edwards 1.020 (1.000-1.030) Urine Protein Negative mg/dL (NEG-TRACE) Urine Glucose (UA) Negative mg/dL (NEG) Urine Ketones (Stick) Negative mg/dL (NEG) Urine Blood Negative (NEG) Urine Nitrite Negative (NEG) Urine Bilirubin Negative (NEG) Urine Urobilinogen Dipstick 0.2 mg/dL (0.2 mg/dL) Urine Leukocyte Esterase Negative (NEG) Urine RBC 0 /HPF (0-2) Urine WBC 0 /HPF (0-4) Urine Squamous Epithelial Cells Few /LPF Urine Bacteria 0 /HPF (0-FEW) Urine Mucus Slight /LPF Urine Opiates Screen Neg (NEG) Urine Methadone Screen Neg (NEG) Urine Barbiturates Neg (NEG) Urine Phencyclidine Screen Neg (NEG) Urine Amphetamine/Methamphetamine Neg (NEG) Urine Benzodiazepines Screen Neg (NEG) Urine Cocaine Screen Neg (NEG) Urine Cannabinoids Screen Neg (NEG) Urine Ethyl Alcohol Neg (NEG) Test 03/15/21 00:20 03/15/21 04:00 Troponin I High Sensitivity 4081 ng/L (4-50) 5165 ng/L (4-50) White Blood Count 10.0 x10^3/uL (4.0-11.0) Red Blood Count 5.00 x10^6/uL (3.50-5.40) Hemoglobin 15.2 g/dL (12.0-15.5) Hematocrit 45.2 % (36.0-47.0) Mean Corpuscular Volume 90 fL (79-100) Mean Corpuscular Hemoglobin 30 pg (25-35) Mean Corpuscular Hemoglobin Concent 34 g/dL (31-37) Red Cell Distribution Width 13.4 % (11.5-14.5) Platelet Count 257 x10^3/uL (140-400) Heparin Anti-Xa Act, Unfractionated 0.40 IU/mL (0.30-0.70) C-Reactive Protein, Quantitative 7.8 mg/L (0-3.3) Laboratory Tests Test 03/14/21 21:00 03/14/21 21:26 03/14/21 21:27 03/14/21 22:22 White Blood Count 12.2 x10^3/uL (4.0-11.0) Red Blood Count 5.28 x10^6/uL (3.50-5.40) Hemoglobin 16.2 g/dL (12.0-15.5) Hematocrit 47.1 % (36.0-47.0) Mean Corpuscular Volume 89 fL (79-100) Mean Corpuscular Hemoglobin 31 pg (25-35) Mean Corpuscular Hemoglobin Concent 34 g/dL (31-37) Red Cell Distribution Width 13.1 % (11.5-14.5) Platelet Count 277 x10^3/uL (140-400) Neutrophils (%) (Auto) 66 % (31-73) Lymphocytes (%) (Auto) 22 % (24-48) Monocytes (%) (Auto) 8 % (0-9) Eosinophils (%) (Auto) 2 % (0-3) Basophils (%) (Auto) 1 % (0-3) Neutrophils # (Auto) 8.0 x10^3/uL (1.8-7.7) Lymphocytes # (Auto) 2.7 x10^3/uL (1.0-4.8) Monocytes # (Auto) 1.0 x10^3/uL (0.0-1.1) Eosinophils # (Auto) 0.2 x10^3/uL (0.0-0.7) Basophils # (Auto) 0.2 x10^3/uL (0.0-0.2) Sodium Level 139 mmol/L (136-145) Potassium Level 3.7 mmol/L (3.5-5.1) Chloride Level 102 mmol/L (98-107) Carbon Dioxide Level 26 mmol/L (21-32) Anion Gap 11 (6-14) Blood Urea Nitrogen 10 mg/dL (7-20) Creatinine 0.6 mg/dL (0.6-1.0) Estimated GFR (Cockcroft-Gault) 99.1 BUN/Creatinine Ratio 17 (6-20) Glucose Level 108 mg/dL (70-99) Calcium Level 8.8 mg/dL (8.5-10.1) Magnesium Level 2.2 mg/dL (1.8-2.4) Total Bilirubin 0.3 mg/dL (0.2-1.0) Aspartate Amino Transf (AST/SGOT) 13 U/L (15-37) Alanine Aminotransferase (ALT/SGPT) 21 U/L (14-59) Alkaline Phosphatase 121 U/L (46-116) Troponin I High Sensitivity 380 ng/L (4-50) EP-Qlj-Z-Type Natriuretic Peptide 158 pg/mL (0-124) Total Protein 6.5 g/dL (6.4-8.2) Albumin 3.6 g/dL (3.4-5.0) Albumin/Globulin Ratio 1.2 (1.0-1.7) SARS-CoV-2 Antigen (Rapid) Negative (NEGATIVE) Activated Partial Thromboplast Time 26 SEC (24-38) D-Dimer (Christy) < 0.27 ug/mlFEU Urine Collection Type Unknown Urine Color Yellow Urine Clarity Clear Urine pH 6.0 (<5.0-8.0) Urine Specific Edwards 1.020 (1.000-1.030) Urine Protein Negative mg/dL (NEG-TRACE) Urine Glucose (UA) Negative mg/dL (NEG) Urine Ketones (Stick) Negative mg/dL (NEG) Urine Blood Negative (NEG) Urine Nitrite Negative (NEG) Urine Bilirubin Negative (NEG) Urine Urobilinogen Dipstick 0.2 mg/dL (0.2 mg/dL) Urine Leukocyte Esterase Negative (NEG) Urine RBC 0 /HPF (0-2) Urine WBC 0 /HPF (0-4) Urine Squamous Epithelial Cells Few /LPF Urine Bacteria 0 /HPF (0-FEW) Urine Mucus Slight /LPF Urine Opiates Screen Neg (NEG) Urine Methadone Screen Neg (NEG) Urine Barbiturates Neg (NEG) Urine Phencyclidine Screen Neg (NEG) Urine Amphetamine/Methamphetamine Neg (NEG) Urine Benzodiazepines Screen Neg (NEG) Urine Cocaine Screen Neg (NEG) Urine Cannabinoids Screen Neg (NEG) Urine Ethyl Alcohol Neg (NEG) Test 03/15/21 00:20 03/15/21 04:00 Troponin I High Sensitivity 4081 ng/L (4-50) 5165 ng/L (4-50) White Blood Count 10.0 x10^3/uL (4.0-11.0) Red Blood Count 5.00 x10^6/uL (3.50-5.40) Hemoglobin 15.2 g/dL (12.0-15.5) Hematocrit 45.2 % (36.0-47.0) Mean Corpuscular Volume 90 fL (79-100) Mean Corpuscular Hemoglobin 30 pg (25-35) Mean Corpuscular Hemoglobin Concent 34 g/dL (31-37) Red Cell Distribution Width 13.4 % (11.5-14.5) Platelet Count 257 x10^3/uL (140-400) Heparin Anti-Xa Act, Unfractionated 0.40 IU/mL (0.30-0.70) C-Reactive Protein, Quantitative 7.8 mg/L (0-3.3) Assessment/Plan Assessment/Plan 1. Acute non-ST elevation myocardial infarction. Serial EKGs showed dynamic T wave inversions. Patient is presently chest pain-free but troponin levels trending up. Continue heparin infusion per protocol. We will proceed with cardiac catheterization and possible angioplasty. Risks and benefits were explained and she is agreeable. 2. Hypertension: Start metoprolol for better control 3. Tobacco abuse: Advised on smoking cessation 4. h/o lymphoma s/p lymph node resections and bowel resection. Follow-up with oncology team. Thank you for your consultation MARK PATEL MD Mar 15, 2021 10:48
[2021-03-15] MEDS ORDERED: fentaNYL PF VIAL 100 MCG/2 ML VIAL IV ONE (11:15)
[2021-03-15] MEDS ORDERED: LIDOCAINE 1% PF 2 ML VIAL. INJ ONE (11:15)
[2021-03-15] MEDS ORDERED: VERAPAMIL 5 MG/2 ML VIAL. IART ONE (11:15)
[2021-03-15] MEDS ORDERED: MIDAZOLAM HCL/PF 2 MG/2 ML VIAL. IV ONE (11:15)
[2021-03-15] MEDS ORDERED: CONTRAST GIVEN. MC PRN (11:15)
[2021-03-15] MEDS ORDERED: NITROGLYCERIN 200 MCG/2 ML SYRINGE FOR CATH/VASC LAB. IART ONE (11:15)
[2021-03-15] MEDS ORDERED: IODIXANOL 320 MG/ML 100 ML VIAL. IART ONE (11:15)
[2021-03-15] MEDS ORDERED: CLOPIDOGREL BISULFATE 75 MG TABLET PO ONE (11:30)
[2021-03-15] MEDS ORDERED: BIVALIRUDIN 250 MG VIAL. IV ONE (11:30)
[2021-03-15] MEDS ORDERED: ASPIRIN 325 MG TABLET PO ONE (11:30)
--- NOTE | 2021-03-15 11:43 | PDOC ---
MODERATE SEDATION ASSESSMENT RISKS/ALTERNATIVES Risks/Alternatives Risks and alternatives of this type of sedation and procedure discussed with: RISK/ALTERNATIVES: Patient H & P ON CHART H & P H & P on chart and reviewed for co-morbid conditions and appropriate labs. H&P ON CHART: Yes STATUS PREG STATUS ASSESSED: N/A MEDS/ALLERGIES REVIEWED Meds/Allergies Reviewed Medications and Allergies including time and route of recently administered narcotics and sedatives. MEDS/ALLERGIES REVIEWED: Yes ASA RATING ASA RATING: II AIRWAY ASSESSMENT Airway Assessment Airway patency, oral function limitations, presence of caps, crowns, dentures, partials, and ability to extend neck assessed. AIRWAY ASSESSMENT: Yes MALLAMPATI SCORE MALLAMPATI SCORE: II PRE-SEDATION ASSESSMENT PRE-SEDATION ASSESSMENT: Yes MARK PATEL MD Mar 15, 2021 11:43
[2021-03-15] MEDS ORDERED: ACETAMINOPHEN 325 MG TABLET. PO PRN (11:45)
[2021-03-15] MEDS ORDERED: HEPARIN for IV BOLUS 10,000 UNIT/10 ML VIAL. IART ONE (12:00)
[2021-03-15] MEDS: NITROGLYCERIN SUBLINGUAL 0.4 MG BOTTLE OF 25. SL PRN ×2 (12:38→12:52)
--- NOTE | 2021-03-15 13:10 | NUR ---
Nursing Note Report received from Abigail in labor relations officer. Pts back to ICU room at 1220. Monitors applied. Right radial site clean dry & intact, cap refill <3, fingers warm. Spo2 applied to right finger. Per report TR band has 13cc of air and will start removing air at 1301. Pt is complaining of upper left back and chest discomfort. Pain rated 10/10. Pt explains it feels like reflux and upon taking a deep breathe everything feels tight in her chest area. Pt is also hypertensive. Nitro tab administered. Pain relieved short term and vitals improved slightly. Nitro tab given again due to pain increasing per pts report. Dr. Lozoya has been notified and awaiting call back from him. Family at bedside. Will continue to monitor.
[2021-03-15] MEDS: IV 1/2 NORMAL SALINE 1,000 ML IV SCH ×2 (14:21→21:45)
[2021-03-15] MEDS ORDERED: METOPROLOL TART IMMED RELEASE 25 MG TABLET. PO ONE (14:30)
[2021-03-15] MEDS: METOPROLOL TART IMMED RELEASE 25 MG TABLET. PO SCH (20:45)
[2021-03-15] MEDS ORDERED: ATORVASTATIN CALCIUM 20 MG TABLET PO SCH (21:00)
[2021-03-16 02:40] VITALS: BP 147/72
[2021-03-16] MEDS: IV 1/2 NORMAL SALINE 1,000 ML IV SCH ×2 (07:40→10:58)
[2021-03-16 07:55] VITALS: BP 115/72
[2021-03-16] MEDS ORDERED: ASPIRIN ENTERIC COATED 325 MG TABLET.DR. PO SCH (08:00)
[2021-03-16] MEDS ORDERED: CLOPIDOGREL BISULFATE 75 MG TABLET PO SCH (08:00)
[2021-03-16] MEDS: METOPROLOL TART IMMED RELEASE 25 MG TABLET. PO SCH (09:08)
[2021-03-16 10:29] VITALS: BP 118/54
--- NOTE | 2021-03-16 12:41 | PDOC ---
[employer] PROGRESS NOTE Date of Service DOS: DATE: 03/16/21 TIME: 12:40 Chief Complaint Chief Complaint Acute myocardial infarction Status post cardiac cath with stent History of the following: HTN Colon cancer Appendectomy, Cholecystectomy, Colon Resection History of Present Illness History of Present Illness 03/16/2021 Patient seen exam I discussed the case with her family and we reviewed the chart together Discussed with RN Vitals/I&O Vitals/I&O: Vital Signs Date Time Temp Pulse Resp B/P (MAP) Pulse Ox O2 Delivery O2 Flow Rate FiO2 03/16/21 10:29 98.4 72 18 118/54 (75) 98 Room Air 98.4 03/16/21 08:00 4.0 I & O 03/15/21 03/15/21 03/16/21 15:00 23:00 07:00 Intake Total 0 ml Balance 0 ml Physical Exam General: Alert, Oriented X3 Heart: Regular rate Abdomen: Soft Extremities: No edema Skin: No rashes, No breakdown, No significant lesion Assessment and Plan Assessmemt and Plan Acute myocardial infarction Status post cardiac cath with stent History of the following: HTN Colon cancer Appendectomy, Cholecystectomy, Colon Resection Plan Cardiac monitoring Await further cardiology input Cardiac cocktail if tolerates (statins beta-blockade MEHRAN inhibitors antiplatelet) Home meds DVT prophylaxis Full code Appreciate cardiology input Comment Review of Relevant I have reviewed the following items cici (where applicable) has been applied. Medications: Current Medications Medications (Trade) Dose Ordered Sig/Omer Route PRN Reason Start Time Stop Time Status Last Admin Dose Admin Aspirin (Ecotrin) 325 mg DAILYWBKFT PO 03/16/21 08:00 03/16/21 09:08 Clopidogrel Bisulfate (Plavix) 75 mg DAILYWBKFT PO 03/16/21 08:00 03/16/21 09:08 Metoprolol Tartrate (Lopressor) 25 mg BID PO 03/15/21 21:00 03/16/21 09:08 Atorvastatin Calcium (Lipitor) 40 mg QHS PO 03/15/21 21:00 03/15/21 20:44 Metoprolol Tartrate (Lopressor) 25 mg 1X ONCE PO 03/15/21 14:30 03/15/21 14:36 DC 03/15/21 14:36 Justifications for Admission Other Justification JUNAID ROBERTS III DO Mar 16, 2021 12:41
[2021-03-16] MEDS ORDERED: METO25TA4 PO (12:51)
[2021-03-16] MEDS ORDERED: NITR0.4T24 SL (12:51)
[2021-03-16] MEDS ORDERED: ATOR20TA58 PO (12:51)
[2021-03-16] MEDS ORDERED: CLOP75TA PO (12:51)
--- NOTE | 2021-03-16 13:13 | DS ---
DATE OF DISCHARGE: 03/16/2021 ADMITTING DIAGNOSIS: Acute myocardial infarction. DISCHARGE DIAGNOSES: Status post cardiac catheterization with stent placement. HOSPITAL COURSE: The patient is a pleasant, middle-aged female who presented with chest pain, was noted to have a bump in her troponin (her troponin ranged from 380 to 5165) and EKG changes. She was taken emergently to the oil field laborer. A stent was placed. Today, I saw and examined her. She is doing well and wants to go home. We plan to discharge with close outpatient followup. DISPOSITION: Home. ACTIVITY: As tolerated. DIET: Low sodium. DISCHARGE MEDICATIONS: Please see the MRAD. Atorvastatin 40 a day, Plavix 75 a day, metoprolol 25 b.i.d. and p.r.n. nitro. TOTAL TIME: 32 minutes. DAVID/RONNI DR: Kirstie TID: [id number]
--- NOTE | 2021-03-16 14:25 | PDOC ---
PROGRESS NOTES Date of Service: DATE: 03/16/21 TIME: 14:25 Subjective Subjective Patient denied any chest pain or shortness of breath Objective Objective Vital Signs Date Time Temp Pulse Resp B/P (MAP) Pulse Ox O2 Delivery O2 Flow Rate FiO2 03/16/21 10:29 98.4 72 18 118/54 (75) 98 Room Air 98.4 03/16/21 08:00 4.0 Intake and Output 03/16/21 07:00 Intake Total 0 ml Balance 0 ml Intake Oral 0 ml # Voids 8 Physical Exam Abdomen: Soft Heart: Regular rate Extremities: No edema General: Alert, Oriented X3 HEENT: Atraumatic Lungs: Clear to auscultation MUSCULOSKELETAL: No deformity, No swelling Neuro: Normal speech Psych/Mental Status: Mood NL Skin: No rashes, No breakdown, No significant lesion Assessment Assessment 1. Acute non-ST elevation myocardial infarction. Cardiac catheterization yesterday showed significant stenosis involving LAD and underwent successful PCI/drug-eluting stent placement. She is presently chest pain-free. Arterial access site looks good. Telemetry did not show any significant arrhythmias. Continue dual antiplatelet therapy and secondary prevention measures. Follow-up with our office in 4 to 6 weeks. 2. Hypertension: Better controlled 3. Tobacco abuse: Advised on smoking cessation 4. h/o lymphoma s/p lymph node resections and bowel resection. Follow-up with oncology team. Comment Review of Relevant I have reviewed the following items cici (where applicable) has been applied. Medications Current Medications Aspirin (Ecotrin) 325 mg DAILYWBKFT PO Last administered on 03/16/21at 09:08; Start 03/16/21 at 08:00 Atorvastatin Calcium (Lipitor) 40 mg QHS PO Last administered on 03/15/21at 20:44; Start 03/15/21 at 21:00 Clopidogrel Bisulfate (Plavix) 75 mg DAILYWBKFT PO Last administered on 03/16/21at 09:08; Start 03/16/21 at 08:00 Metoprolol Tartrate (Lopressor) 25 mg 1X ONCE PO Last administered on 03/15/21at 14:36; Start 03/15/21 at 14:30; Stop 03/15/21 at 14:36; Status DC Metoprolol Tartrate (Lopressor) 25 mg BID PO Last administered on 03/16/21at 09:08; Start 03/15/21 at 21:00 Vitals/I & O Vital Sign - Last 24 Hours 03/15/21 03/15/21 03/15/21 03/15/21 14:30 14:36 15:00 16:00 Pulse 84 84 84 Resp 20 18 B/P (MAP) 171/84 (113) 171/84 173/85 (114) Pulse Ox 100 100 O2 Delivery Nasal Cannula Nasal Cannula Nasal Cannula O2 Flow Rate 4.0 4.0 4.0 03/15/21 03/15/21 03/15/21 03/15/21 16:00 17:00 18:00 19:00 Temp 98.4 97.8 98.4 97.8 Pulse 78 76 78 70 Resp 16 18 B/P (MAP) 163/85 (111) 155/78 (103) 155/110 (125) 146/96 (113) Pulse Ox 100 99 99 97 O2 Delivery Nasal Cannula Nasal Cannula Nasal Cannula Room Air O2 Flow Rate 4.0 2.0 2.0 03/15/21 03/15/21 03/15/21 03/16/21 20:03 20:45 23:40 02:40 Temp 97.7 97.8 97.7 97.8 Pulse 70 85 85 Resp 18 B/P (MAP) 146/96 143/88 (106) 147/72 (97) Pulse Ox 98 98 O2 Delivery Room Air Room Air Room Air 03/16/21 03/16/21 03/16/21 03/16/21 07:55 08:00 09:08 10:29 Temp 97.9 98.4 97.9 98.4 Pulse 79 86 72 Resp 18 18 B/P (MAP) 115/72 (86) 115/72 118/54 (75) Pulse Ox 97 98 O2 Delivery Room Air Room Air Room Air O2 Flow Rate 4.0 Intake and Output 03/15/21 03/15/21 03/16/21 15:00 23:00 07:00 Intake Total 0 ml Balance 0 ml MARK PATEL MD Mar 16, 2021 14:25
--- NOTE | 2021-04-08 13:56 | CARD ---
Accession No. : [id number] Patient Name / ID : KAI Watson / [id number] Exam Date : 03/15/2021 10:09:19 ( Approved ) Study Comment : Sex / Age : F / 70Y Creator : Terri Carcamo Dictator : Clinical Exercise Specialist : Tape Transferrer : Mark Patel Approver2 : Report Date : 03/15/2021 12:02:29 My Comment : MR#: [id number] Date of Study: 03/15/2021 Ordering Physician: MARK PATEL, Referring Physician: MARK PATEL, Tech: RT Yocasta(R) APPROVED REPORT Technologist: RT Yocasta(R) Nurse: Radha Hammonds RN Procedure(s) performed: 1. Left heart catheterization, selective coronary angiography and left ventriculography via right transradial approach 2. Successful PCI/drug-eluting stent placement to the left anterior descending artery FL TIME 17.1 MINUTES DOSE 90.59 Gycm2 CONTRAST: 168 CC'S VISI MODERATE SEDATION: 73 MINUTES INDICATION The indication(s) include : non-STEMI . [facility] Clinical Frailty Scale [facility] Clinical Frailty Scale: Mildly Frail Heart Failure Heart Failure: No CASE TECHNIQUE IV conscious sedation was used throughout procedure with appropriate monitoring and was performed in the presence of a registered nurse who was an independent trained observer other than the physician performing the procedure. During this case, Fluoroscopy and low osmolar contrast were used for imaging. Specimen(s) Removed: No Estimated Blood loss: 15 cc's. PROCEDURE NARRATIVE After explaining the risks, benefits and alternative options, informed consent was obtained from patient. Patient was brought to the cardiac Foundry Manager and right wrist was prepped and draped in the usual fashion after confirming a positive modified Johny's test. Arterial access was obtained in the right radial artery and a 6 Bhutanese sheath was inserted. 6 Bhutanese JL 3.5 and 6 Bhutanese JR4 catheters were used to perform selective angiography of the left and right coronary arteries after initial attempts to engage these vessels using 6 Bhutanese Grady catheter were unsuccessful. 6 Bhutanese pigtail catheter was used to perform left ventriculography. The following findings were noted. FINDINGS 1. Hemodynamics: Left ventricular end-diastolic pressure of 18 mmHg. No pullback gradient across the aortic valve. 2. Left ventriculography: Severe hypokinesis of the mid to distal anterolateral wall and the apical wall with ejection fraction estimated at 35%. No significant mitral regurgitation seen. 3. Coronary angiography: a. The left main coronary artery arose from the left sinus of Valsalva, gave rise to the left anterior descending and left circumflex arteries and did not show any significant stenosis. b. The left anterior descending artery showed 40% stenosis in the ostial segment and a critical 90% stenosis involving the mid segment. c. The left circumflex artery did not show any significant stenosis. d. The right coronary artery was a large and dominant vessel arising from the right sinus of Valsalva that did not show any significant stenosis. INTERVENTION The left main coronary artery was engaged with a 6 Bhutanese XB 3.5 guide catheter. The stenosis in the mid segment of the left anterior descending artery was crossed with a 0.014 inch Poliana guidewire. This was predilated with a 3.0 x 15 mm [employer] Emerge balloon following which this was successfully treated with 3.5 x 22 mm resolute Italo drug-eluting stent that was deployed at high atmospheric pressure of 18 colton to achieve 3.7 mm diameter. Follow-up angiography showed resolution of the stenosis to 0% with JAZMYN-3 distal flow. Patient tolerated the procedure well. Hemostasis was achieved using TR band. There were no immediate complications. JAZMYN Flow JAZMYN Flow (Pre-Intervention): JAZMYN-2 JAZMYN Flow (Post-Intervention): JAZMYN-3 Conclusion 1. Severe single-vessel coronary artery disease involving the left anterior descending artery 2. Severe hypokinesis of the mid to distal anterolateral wall and the apical wall with ejection fraction estimated at 35% 3. Successful PCI/drug-eluting stent placement to the left and descending artery Recommendations 1. Aspirin 325 mg daily for 1 month followed by 81 mg daily 2. Plavix 75 mg daily 3. Cardiovascular risk factor modification Signed by : Mark Patel, Electronically Approved : 03/15/2021 17:37:22 LOYDA
== END 2021-03-16 13:30 | disposition home or self-care (01) | DRG 246 ==
LOC: ER 20:20 → ED HOLD 21:41 → 6 SOUTH 23:32 → 1 WEST ICU 03-15 01:45 → 6 SOUTH 03-15 18:00
PROVIDERS: ADMIT Internal Medicine; ATTEND Internal Medicine
PROC: 027034Z Dilation of Coronary Artery, One Artery with Drug-eluting Intraluminal Device, Percutaneous Approach (ICD-10-PCS; principal; 2021-03-15)
PROC: 4A023N7 Measurement of Cardiac Sampling and Pressure, Left Heart, Percutaneous Approach (ICD-10-PCS; 2021-03-15)
PROC: B211YZZ Fluoroscopy of Multiple Coronary Arteries using Other Contrast (ICD-10-PCS; 2021-03-15)
PROC: B215YZZ Fluoroscopy of Left Heart using Other Contrast (ICD-10-PCS; 2021-03-15)
DX: I21.4 Non-ST elevation (NSTEMI) myocardial infarction (principal); J96.01 Acute respiratory failure with hypoxia; D16.4 Benign neoplasm of bones of skull and face; F17.210 Nicotine dependence, cigarettes, uncomplicated; M47.814 Spondylosis without myelopathy or radiculopathy, thoracic region; Z20.822 Contact with and (suspected) exposure to COVID-19; Z82.3 Family history of stroke; Z82.49 Family history of ischemic heart disease and other diseases of the circulatory system; Z83.3 Family history of diabetes mellitus; Z85.72 Personal history of non-Hodgkin lymphomas; Z90.49 Acquired absence of other specified parts of digestive tract; D71 Functional disorders of polymorphonuclear neutrophils; Z71.6 Tobacco abuse counseling; Z91.040 Latex allergy status; I25.10 Atherosclerotic heart disease of native coronary artery without angina pectoris; I10 Essential (primary) hypertension; Z85.038 Personal history of other malignant neoplasm of large intestine; Z88.8 Allergy status to other drugs, medicaments and biological substances
CPT/HCPCS: 36415; 70450; 71045; 71275; 80053; 80307; 81001; 83735; 83880; 84484; 85025; 85027; 85379; 85520; 85651; 85730; 86140; 87426; 92928; 93005; 93458; 96365; 96366; 96376; 99152; 99153; C1874; C1894; J0583; J1644; J2250; J3010; J3490; J7030; Q9967; U0003; U0005; 99285-25; C1725; G0378